=== PATIENT | female | born 1985 | race Caucasian/White ===

== ENCOUNTER 2018-09-21 07:45 | Day surgery (SDC) | payer MEDICAID ==
[2018-09-21 09:39] LABS: ADD MAN DIFF? NO
[2018-09-21 09:47] LABS: BASOPHILS % 0.4 % (0.0-2.0); EOSINOPHILS # 0.1 10^3/ul (0.0-0.5); HEMATOCRIT 30.8 % (37.0-47.0); HEMOGLOBIN 9.2 g/dl (12.0-16.0); LYMPHOCYTES # 1.8 10^3/ul (0.8-2.9); LYMPHOCYTES % 21.7 % (15.0-51.0); MEAN CORPUSCULAR HGB CONC 29.9 g/dl (32.0-37.0); MEAN CORPUSCULAR VOLUME 80.2 fl (82.0-101.0); MEAN PLATELET VOLUME 10.5 fl (7.4-10.4); MONOCYTE # 0.6 10^3/ul (0.3-0.9); NEUTROPHIL # 5.8 10^3/ul (1.6-7.5); NEUTROPHILS % 69.3 % (39.0-77.0); PLATELET COUNT 365 10^3/UL (140-415); RED BLOOD COUNT 3.84 10^6/ul (4.20-5.40); RED CELL DISTRIBUTION WIDTH 15.9 % (11.5-14.5)
[2018-09-21 09:47] LABS: WHITE BLOOD COUNT 8.3 10^3/ul (4.8-10.8)
[2018-09-21 09:53] LABS: HOLD TRANSMISSIONS 1
[2018-09-21] MEDS ORDERED: KETOROLAC 30 MG INJ IV (10:00)
[2018-09-21] MEDS ORDERED: OXYCODONE/ACETAMINOPHEN (5/325) TAB PO ×2 (10:00)
[2018-09-21] MEDS ORDERED: MEPERIDINE 25 MG INJ IV (10:00)
[2018-09-21] MEDS ORDERED: HYDROmorphONE 1 MG/5 ML IV SYRINGE IV ×2 (10:00)
[2018-09-21] MEDS ORDERED: DIPHENHYDRAMINE 50 MG INJ IV (10:00)
[2018-09-21] MEDS ORDERED: ONDANSETRON 4 MG INJ IV (10:00)
[2018-09-21] MEDS ORDERED: PROPOFOL 20 ML ×2 (10:10→13:04)
[2018-09-21] MEDS ORDERED: METOCLOPRAMIDE 10 MG INJ (10:10)
[2018-09-21] MEDS ORDERED: CEFAZOLIN 1 GM INJ (10:10)
[2018-09-21] MEDS ORDERED: ONDANSETRON 4 MG INJ (10:10)
[2018-09-21] MEDS ORDERED: KETOROLAC 30 MG INJ (10:10)
[2018-09-21] MEDS: HYDROmorphONE 1 MG/5 ML IV SYRINGE IV (11:42)
== END 2018-09-21 12:41 | disposition home or self-care (01) ==
LOC: SDS 07:45
DX: N93.9 Abnormal uterine and vaginal bleeding, unspecified (principal); N92.1 Excessive and frequent menstruation with irregular cycle; D25.9 Leiomyoma of uterus, unspecified
CPT/HCPCS: 58563; 85025; 88305; 88331